=== PATIENT | male | born 1995 | race Two or more races ===

== ENCOUNTER 2023-03-08 22:35 | Inpatient (IN) | payer OTHER ==
[2023-03-08 23:05] VITALS: BMI 23.1
[2023-03-08] MEDS ORDERED: MAG HYDROX/AL HYDROX/SIMETH 30 ML UNIT-DOSE CUP PO PRN (23:27)
[2023-03-08] MEDS ORDERED: MAGNESIUM HYDROX 2400MG/30ML ORAL SUSPENSION 30 ML CUP PO PRN (23:27)
[2023-03-08] MEDS ORDERED: LOPERAMIDE HCL 2 MG CAPSULE PO PRN (23:27)
[2023-03-08] MEDS ORDERED: BENZONATATE 200 MG CAPSULE PO PRN (23:27)
[2023-03-08] MEDS ORDERED: ACETAMINOPHEN 325 MG TABLET (FP) PO PRN (23:27)
[2023-03-08] MEDS ORDERED: BISMUTH SUBSALICYLATE 524 MG/30 ML PO PRN (23:27)
[2023-03-08] MEDS ORDERED: DICYCLOMINE HCL 10 MG CAPSULE PO PRN (23:27)
[2023-03-08] MEDS ORDERED: P-EPHED 60MG/TRIPROLIDI 2.5MG TABLET PO PRN (23:27)
[2023-03-08] MEDS ORDERED: guaiFENesin 600 MG TABLET.ER (FP) PO PRN (23:27)
[2023-03-08] MEDS ORDERED: ONDANSETRON *ODT* 4 MG TABLET SL PRN (23:27)
[2023-03-08] MEDS ORDERED: NICOTINE POLACRILEX 2 MG GUM BUC PRN (23:27)
[2023-03-08] MEDS ORDERED: NICOTINE 10 MG CARTRIDGE (INHALER) IH PRN (23:27)
[2023-03-08] MEDS ORDERED: IBUPROFEN 600 MG TABLET (FP) PO PRN (23:27)
[2023-03-08] MEDS ORDERED: POLYETHYLENE GLYCOL (HEALTHYLAX) 3350 17 GM PACKET PO PRN (23:27)
[2023-03-08] MEDS ORDERED: IBUPROFEN 400 MG TABLET (FP) PO PRN (23:27)
[2023-03-08] MEDS ORDERED: BENZOCAINE/MENTHOL (CHLORASEPTIC ) LOZENGE MM PRN (23:27)
[2023-03-09] MEDS: hydrOXYzine PAMOATE 25 MG CAPSULE (FP) PO PRN ×2 (00:53→10:10)
[2023-03-09] MEDS: METHOCARBAMOL 500 MG TABLET PO PRN ×2 (00:53→10:10)
[2023-03-09] MEDS: PRENATAL VITAMINS W/ FOLIC ACID TABLET (FP) PO SCH (10:10)
[2023-03-09] MEDS ORDERED: chlordiazePOXIDE HCL 25 MG CAPSULE PO PRN (10:17)
[2023-03-09] MEDS: ESCITALOPRAM OXALATE 10 MG TABLET PO SCH (11:06)
[2023-03-09] MEDS: chlordiazePOXIDE HCL 25 MG CAPSULE PO SCH ×3 (11:07→22:06)
[2023-03-09 11:25] LABS: HEMATOCRIT 44.9 % (35.4-49); HEMOGLOBIN 14.7 GM/dL (11.7-16.9); MCH 30.1 pg (25.7-33.7); MCHC 32.7 g/dl (32.0-35.9); MEAN CELL VOLUME 91.8 fl (80-96); MEAN PLT VOLUME 8.9 fl (7.5-11.1); PLATELET COUNT 349 10^3/uL (134-434); RBC 4.89 M/mm3 (4.00-5.60); RDW 13.4 % (11.9-15.9); WHITE BLOOD COUNT 4.2 K/mm3 (4.0-10.0)
[2023-03-09 11:33] LABS: POTASSIUM 4.2 mmol/L (3.5-5.1)
[2023-03-09 11:39] LABS: ALBUMIN 4.2 g/dl (3.4-5.0); BLOOD UREA NITROGEN 11.8 mg/dL (7-18); CALCIUM 9.4 mg/dL (8.5-10.1)
[2023-03-09 11:42] LABS: CREATININE 1.1 mg/dL (0.55-1.3)
[2023-03-09 11:44] LABS: BILIRUBIN,TOTAL 0.9 mg/dL (0.2-1); TOT PROT 7.2 g/dl (6.4-8.2)
[2023-03-09] MEDS: THIAMINE HCL 100 MG TABLET (FP) PO SCH (22:06)
[2023-03-09] MEDS: MELATONIN 5 MG TABLETS PO SCH (22:06)
[2023-03-10] MEDS: chlordiazePOXIDE HCL 25 MG CAPSULE PO SCH ×4 (05:17→22:52)
[2023-03-10] MEDS: ESCITALOPRAM OXALATE 10 MG TABLET PO SCH (10:55)
[2023-03-10] MEDS: PRENATAL VITAMINS W/ FOLIC ACID TABLET (FP) PO SCH (10:55)
[2023-03-10] MEDS: METHOCARBAMOL 500 MG TABLET PO PRN (11:10)
[2023-03-10] MEDS: hydrOXYzine PAMOATE 25 MG CAPSULE (FP) PO PRN (11:10)
[2023-03-10] MEDS: THIAMINE HCL 100 MG TABLET (FP) PO SCH (22:51)
[2023-03-10] MEDS: MELATONIN 5 MG TABLETS PO SCH (22:54)
[2023-03-11] MEDS: chlordiazePOXIDE HCL 25 MG CAPSULE PO SCH ×4 (05:36→22:27)
[2023-03-11] MEDS: METHOCARBAMOL 500 MG TABLET PO PRN (10:57)
[2023-03-11] MEDS: ESCITALOPRAM OXALATE 10 MG TABLET PO SCH (10:57)
[2023-03-11] MEDS: PRENATAL VITAMINS W/ FOLIC ACID TABLET (FP) PO SCH (10:57)
[2023-03-11] MEDS: hydrOXYzine PAMOATE 25 MG CAPSULE (FP) PO PRN (10:57)
[2023-03-11] MEDS: THIAMINE HCL 100 MG TABLET (FP) PO SCH (22:27)
[2023-03-11] MEDS: MELATONIN 5 MG TABLETS PO SCH (22:28)
[2023-03-12] MEDS ORDERED: chlordiazePOXIDE HCL 10 MG CAPSULE PO PRN
[2023-03-12] MEDS: chlordiazePOXIDE HCL 10 MG CAPSULE PO SCH ×4 (05:34→22:14)
[2023-03-12] MEDS: PRENATAL VITAMINS W/ FOLIC ACID TABLET (FP) PO SCH (10:17)
[2023-03-12] MEDS: METHOCARBAMOL 500 MG TABLET PO PRN (10:17)
[2023-03-12] MEDS: ESCITALOPRAM OXALATE 10 MG TABLET PO SCH (10:17)
[2023-03-12] MEDS: hydrOXYzine PAMOATE 25 MG CAPSULE (FP) PO PRN (10:17)
[2023-03-12] MEDS: MELATONIN 5 MG TABLETS PO SCH (22:14)
[2023-03-12] MEDS: THIAMINE HCL 100 MG TABLET (FP) PO SCH (22:14)
[2023-03-13] MEDS ORDERED: chlordiazePOXIDE HCL 10 MG CAPSULE PO SCH (05:00)
[2023-03-13] MEDS: PRENATAL VITAMINS W/ FOLIC ACID TABLET (FP) PO SCH (10:09)
[2023-03-13] MEDS: ESCITALOPRAM OXALATE 10 MG TABLET PO SCH (10:09)
[2023-03-13] MEDS: METHOCARBAMOL 500 MG TABLET PO PRN (10:09)
[2023-03-13] MEDS: hydrOXYzine PAMOATE 25 MG CAPSULE (FP) PO PRN (10:09)
[2023-03-13 13:05] VITALS: BP 151/75; PULSE 65; RESP 18; TEMP 97.3
[2023-03-14] MEDS ORDERED: chlordiazePOXIDE HCL 10 MG CAPSULE PO ONE (05:00)
== END 2023-03-13 12:40 | disposition home or self-care (01) | DRG 774 ==
LOC: YASAS 22:35 → Y6N 23:37
PROVIDERS: ADMIT Allergy & Immunology; ATTEND Surgery
PROC: HZ2ZZZZ Detoxification Services for Substance Abuse Treatment (ICD-10-PCS; principal; 2023-03-08)
DX: F10.230 Alcohol dependence with withdrawal, uncomplicated (principal); F14.20 Cocaine dependence, uncomplicated; F17.290 Nicotine dependence, other tobacco product, uncomplicated; F19.282 Other psychoactive substance dependence with psychoactive substance-induced sleep disorder; F32.9 Major depressive disorder, single episode, unspecified; Z28.310 Unvaccinated for COVID-19; Z86.59 Personal history of other mental and behavioral disorders; Z59.01 Sheltered homelessness
CPT/HCPCS: 36415; 80053; 85027; 86780; 87635